=== PATIENT | male | born 1965 | race Caucasian/White ===

== ENCOUNTER 2023-05-21 09:35 | Emergency (ER) | payer BC, SELFPAY ==
[2023-05-21 09:44] VITALS: BP 152/92
--- NOTE | 2023-05-21 10:46 | ED.GENMED ---
History of Present Illness
<Odessa Johnson PA-C - Last Filed: 05/21/23 17:54>
General
Chief Complaint: Post Operative Problem(s)
Source: patient
Exam Limitations: none
Time Seen by Provider: 05/21/23 09:58
Nursing documentation reviewed up to this point in time: agreed with
Travel History
Have you had any contact with someone who has COVID-19?: No
Do you have any symptoms of coronavirus? Fever > 100 degrees, chills, cough, shortness of breath, sore throat, loss of taste or smell, muscle aches, or headache?: No
History of Present Illness
History of Present Illness:
Patient is a 58-year-old male postop day 7 from septoplasty presenting to the emergency department from ENT office for evaluation of clear nasal drainage. Patient states that surgery was without complications and he was recovering well at home with
bloody nasal drainage for the first 2 days postop as expected. He then continued to have a clear liquid nasal drainage with any forward head movement. He was seen by his ENT, Dr. Lebron, this morning regarding the persistent clear nasal drainage.
She referred him to emergency department for testing of nasal drainage and CT scan of head/sinuses to rule out possible CSF leak.
Of note�patient was found to have a right otitis media and started on a course of cefdinir by ENT.
He currently endorses a very dull headache, right ear pain. He denies any neck pain or stiffness or back pain.
Phy Exam
<Odessa Johnson PA-C - Last Filed: 05/21/23 17:54>
Physical Exam
Physical Exam:
General: Well appearing and non-toxic
Vitals: Hypertensive, otherwise vital signs stable, afebrile
HEENT: Atraumatic, normocephalic; pupils equal round and reactive to light bilaterally, patient lying flat without any obvious nasal drainage, right TM erythematous slight bulging, left TM clear with visible landmarks; protecting airway
Neck: appears supple, no meningeal signs
CV: Regular rate and rhythm, heart sounds normal, no evidence of cyanosis
Resp: No evidence of respiratory distress, lungs clear bilaterally
Abd: Non-distended
Extremities: No deformities, no evidence of cyanosis or edema DP pulses palpable bilateral
Neuro: alert and oriented; grossly intact
Psych: Normal affect
Skin: Intact, no rashes
Course
<Odessa Johnson PA-C - Last Filed: 05/21/23 17:54>
Orders/Labs/Results
Orders:
Orders
05/21/23 10:35
CT Head W/o Iv Contrast Urgent
Comment:
Reason For Exam: 1 week post-op septoplasty; clear nasal drainage
Sinuses wo Contrast CT [CT Sinuses W/o Iv Contrast] Urgent
Comment:
Reason For Exam: 1 week post-op septoplasty; clear nasal drainage
05/21/23 10:37
Add On- LAB Urgent
Tests Added?: beta-2 Transferrin
05/21/23 10:49
Acetaminophen [Tylenol] 650 mg PO NOW STA
Vital Signs
Initial and Last Documented VS:
Initial Vital Signs
Temp Pulse Resp BP Pulse Ox
97.8 F 89 18 152/92 97
05/21/23 09:44 05/21/23 09:44 05/21/23 09:44 05/21/23 09:44 05/21/23 09:44
Last Documented Vital Signs
Temp Pulse Resp BP Pulse Ox
98.2 F 80 16 132/96 99
05/21/23 13:22 05/21/23 13:22 05/21/23 13:22 05/21/23 13:22 05/21/23 13:22
<Tom Interiano DO - Last Filed: 05/21/23 11:00>
Orders/Labs/Results
Orders:
Orders
05/21/23 10:35
CT Head W/o Iv Contrast Urgent
Comment:
Reason For Exam: 1 week post-op septoplasty; clear nasal drainage
Sinuses wo Contrast CT [CT Sinuses W/o Iv Contrast] Urgent
Comment:
Reason For Exam: 1 week post-op septoplasty; clear nasal drainage
05/21/23 10:37
Add On- LAB Urgent
Tests Added?: beta-2 Transferrin
05/21/23 10:49
Acetaminophen [Tylenol] 650 mg PO NOW STA
Vital Signs
Initial and Last Documented VS:
Initial Vital Signs
Temp Pulse Resp BP Pulse Ox
97.8 F 89 18 152/92 97
05/21/23 09:44 05/21/23 09:44 05/21/23 09:44 05/21/23 09:44 05/21/23 09:44
Last Documented Vital Signs
Temp Pulse Resp BP Pulse Ox
98.2 F 80 16 132/96 99
05/21/23 13:22 05/21/23 13:22 05/21/23 13:22 05/21/23 13:22 05/21/23 13:22
<Odessa Johnson PA-C - Last Filed: 05/21/23 17:54>
MDM/Problems Addressed
Differential Diagnosis Includes:
CSF leak/dural leak, postoperative complication, normal postoperative course, otitis media
MDM/Problems Addressed:
Patient is a 58-year-old male postop day 7 from septoplasty presenting for evaluation from ENTs office with concern for possible CSF leak. Patient with clear nasal drainage with forward head movement/bending over. Referred to emergency department
by ENT for CT scan of sinuses and fluid analysis of nasal drainage. Patient found to have right otitis media and started on antibiotics by ENT. Patient denies any headache, neck pain, neck stiffness, fevers. Patient is mildly hypertensive,
otherwise vital signs stable. He is afebrile and nontoxic-appearing. Physical exam as documented above. Patient brought sample of nasal fluid in sterile cup from ENTs office.
Called and spoke with Dr. Lebron. She is requesting a noncontrast CT of head and sinuses. She is requesting that we send nasal fluid for a Beta-2 transferrin test. Will wait for results of CT scan and communicate with Dr. Lebron for disposition
of patient.
CT scan of sinuses show findings consistent with likely CSF leak. Discussed at length with Dr. Lebron. Dr. Lebron communicated with dinkey engineer Dr. Olea. Per Dr. Lebron�patient declined transfer to [facility] for lumbar drain placement.
They will see patient in office at Dr. Olea's office on Wednesday with plans for surgical fix next week. Patient will be discharged from emergency department with strict bedrest precautions and recommendations to avoid any straining/blowing nose.
He will start antibiotic prescribed by Dr. Lebron for likely otitis media.
Plan to call patient with results from beta-2 transferrin test. Will communicate results with Dr. Lebron when available.
Chronic conditions affecting care:
Recent septoplasty
Acute Exacerbation and/or Progression of Chronic Illness:
Postoperative complication from recent septoplasty likely CSF leak
<Odessa Johnson PA-C - Last Filed: 05/21/23 17:54>
*Radiology
Radiology exam reviewed: radiology read reviewed
*Pulse Oximetry
Patient hypoxic: no
*Value Engineer Interpretation
Rate: Value Engineer- N/A
*Critical Care Note
Total Time (30-74mins, 75-104mins- exclusive of procedures): Not Applicable
<Odessa Johnson PA-C - Last Filed: 05/21/23 17:54>
Patient Management
Discussion with other providers: Bicycle Subassembler (ENT, Dr. Lebron)
ED Attending Note
<Odessa Johnson PA-C - Last Filed: 05/21/23 17:54>
-
Portions of this chart may have been created with voice recognition software.� Occasional wrong word or��sound alike� substitutions may have occurred due to the inherent limitations of voice recognition software.
<Tom Interiano DO - Last Filed: 05/21/23 11:00>
ED Attending Note
Patient seen and examined by attending physician: Yes
I performed the substantive portion of visit, reviewed & personally made and approve the management plan that is documented in note by myself or KO.: Yes
ED Attending Note:
Seen with PA examined independently sent in by ENT for CT of the head and sinuses also with clear fluid for labs to be sent for CSF leak plan per ENT is if he looks okay after CAT scan to send home already has antibiotics for otitis
Discharge Plan
Departure
Patient Disposition: Home (Routine Discharge)
Date of Disposition: 05/21/23
Time of Disposition: 12:45
Patient with high blood pressure during this ER visit?: Yes
Condition: Good
Covid-19: Not Applicable
Discharge Problem:
CSF leak from nose, Post-operative complication
Prescriptions:
No Action
atorvastatin 40 MG tablet
40 mg PO Daily
carvedilol [Coreg] 25 MG tablet
25 mg PO BID
rivaroxaban [Xarelto] 20 MG tablet
20 mg PO QPM Qty: 90 0RF
Referrals:
Cecil Alvarez DO [Family Provider] -
Edi Olea MD [Non-Admitting Privileges] - Keep scheduled appt
Stand Alone Forms: Return to Work
Activity Restrictions/Additional Instructions:
- Return to the emergency department any high fevers, severe neck or back pain, severe headache, numbness/tingling, weakness, worsening in current symptoms, or any other concerns
-You will be contacted with the results of your fluid analysis.
-Per recommendation from ENT�you should remain on bedrest, laying flat until you follow-up on Wednesday with dinkey engineer. You should refrain from any strenuous activity. You should avoid blowing your nose or straining. Recommend a stool softener
daily to prevent straining with bowel movement
-Your ENT has sent a prescription for antibiotic to pharmacy. You should start this today.
-Follow-up with Dr. Olea on Wednesday as scheduled.
Interventions
Interventions:
*Risk Screen - Suicide Last Done: 05/21/23 09:50
*Neglect/Abuse Screening Last Done: 05/21/23 09:50
*ED COVID-19 Vaccine History Last Done: 05/21/23 09:44
*Nursing Disposition Last Done: 05/21/23 13:22
ED-Skin Assessment Last Done: 05/21/23 11:47
Discharge Date and Time
Discharge Date/Time: 05/21/23 13:23
[2023-05-21] MEDS: TYLENOL 650 MG PO (11:14)
[2023-05-21 13:22] VITALS: BP 132/96
== END 2023-05-21 13:23 | disposition home or self-care (01) ==
LOC: EMR 09:35
PROVIDERS: EMERGENCY PHYSICIAN Emergency Medicine; FAMILY PHYSICIAN Internal Medicine
DX: G96.00 Cerebrospinal fluid leak, unspecified (principal); T81.89XA Other complications of procedures, not elsewhere classified, initial encounter; Y83.8 Other surgical procedures as the cause of abnormal reaction of the patient, or of later complication, without mention of misadventure at the time of the procedure; R03.0 Elevated blood-pressure reading, without diagnosis of hypertension
CPT/HCPCS: 99284; 70450; 70486